=== PATIENT | female | born 1960 | race Caucasian/White ===

== ENCOUNTER 2022-04-14 10:03 | Emergency (ER) | payer OTHER ==
[~2022-04-14] VITALS: Ht 162.6 cm; Wt 69.4 kg
--- NOTE | 2022-04-14 10:10 | NUR ---
Triaged pt and pt is in waiting room waiting for a bed. Pt c/o chest pressure and sob. Pt states it started a month ago and saw a help desk internship today but then came here to the ER after seeing her help desk internship due to increased pressure. HR elevated at 109, other vitals stable. Pt is A&Ox4. Skin intact. Ambulatory with steady gait. No nausea and no vomiting. No blurred vision. Pupils PERRLA. Neuro checks within normal limits.
--- NOTE | 2022-04-14 10:12 | NUR ---
EKG performed at by Jackelin CASTILLO. Physician given copy of EKG for review.
[2022-04-14 10:13] VITALS: BP_SYST 154
--- NOTE | 2022-04-14 10:40 | NUR ---
ERMD AT BEDSIDE
[2022-04-14] MEDS ORDERED: ASPIRIN 81 MG TAB.CHEW PO ONE (11:15)
[2022-04-14 11:40] LABS: BASOPHILS % (AUTO) 0.8 % (0.0-2.0); EOSINOPHILS # (AUTO) 0.1 K/uL (0.0-0.4); EOSINOPHILS % (AUTO) 1.7 % (0.0-4.0); HEMATOCRIT 38.5 % (36-48); HEMOGLOBIN 13.3 g/dL (12.0-16.0); LYMPHOCYTES # (AUTO) 1.3 K/uL (1.0-5.5); LYMPHOCYTES % (AUTO) 26.5 % (20.5-51.5); MEAN CORPUSCULAR HEMOGLOBIN 31 pg (27-31); MEAN CORPUSCULAR HGB CONC 35 % (32-36); MEAN CORPUSCULAR VOLUME 90 fL (79.0-98.0); MONOCYTES # (AUTO) 0.3 K/uL (0.0-1.0); MONOCYTES % (AUTO) 7.1 % (1.7-9.3); NEUTROPHILS % (AUTO) 63.9 % (40.0-70.0); PLATELET COUNT (AUTO) 160 K/uL (130-430); RED BLOOD CELL COUNT(AUTO) 4.29 MIL/uL (4.2-6.2); RED CELL DISTRIBUTION WIDTH 13.8 % (9.0-15.0); WHITE BLOOD COUNT (AUTO) 4.7 K/uL (4.8-10.8)
[2022-04-14 12:09] LABS: ANION GAP 6 (5-15); CALCIUM 9.9 mg/dL (8.4-11.0); CHLORIDE 105 mmol/L (98-107); CREATININE 0.76 mg/dL (0.55-1.30); GLUCOSE 104 mg/dL (70-99); POTASSIUM 3.7 mmol/L (3.5-5.1); SODIUM SERUM 143 mmol/L (136-145); UREA NITROGEN, BLOOD 11 mg/dL (8-21)
[2022-04-14 12:15] LABS: GFR AFRICAN AMERICAN 100 mL/min (>90)
[2022-04-14 12:18] LABS: ALANINE AMINOTRANSFERASE 35 U/L (12-78); ALBUMIN 3.7 g/dL (3.4-4.8); ASPARTATE AMINOTRANSFERASE 26 U/L (10-37); TOTAL BILIRUBIN 0.6 mg/dL (0.0-1.0)
[2022-04-14] MEDS ORDERED: PRO40 PO (14:50)
[2022-04-14 15:02] VITALS: BP_SYST 128
--- NOTE | 2022-04-14 15:03 | NUR ---
Patient given written and verbal discharge instructions and verbalizes understanding. ER MD discussed with patient the results and treatment provided. Patient in stable condition. ID arm band removed. Patient educated on pain management and to follow up with PMD. Pain Scale 0/10. Opportunity for questions provided and answered. Medication side effect fact sheet provided.
== END 2022-04-14 15:02 | disposition home or self-care (01) ==
LOC: SED 10:03
DX: R07.89 Other chest pain (principal); K21.9 Gastro-esophageal reflux disease without esophagitis; Z88.8 Allergy status to other drugs, medicaments and biological substances
CPT/HCPCS: 36415; 71045; 80053; 83880; 84484; 85025; 85379; 93005; 99285